=== PATIENT | male | born 1970 | race Caucasian/White ===

== ENCOUNTER 2024-10-04 09:04 | Inpatient (IN) | payer BC, SELFPAY ==
[~2024-10-04] VITALS: Ht 185.4 cm; Wt 98.5 kg
[2024-10-04] MEDS ORDERED: ISOVUE-370 76% 100ML VIAL As Ordered ONE (09:28)
[2024-10-04 09:49] LABS: VENOUS HCO3 25.6 MMOL/L (23.0-27.0); VENOUS O2 SATURATION 62.7 % (60.0-80.0); VENOUS PARTIAL PRESSURE CO2 45.1 mmHg (38.0-50.0); VENOUS PARTIAL PRESSURE O2 31.1 mmHg (30.0-50.0); VENOUS PH 7.372 UNITS (7.330-7.430); VENOUS STANDARD HCO3 23.5 MMOL/L
[2024-10-04] MEDS: ceFAZolin SOD 2 GM in IV 1 EA IV ONE (09:50)
[2024-10-04] MEDS: BOOSTRIX VACCINE (TETANUS/DIPHTH/ACEL. PERTUSSIS) 0.5ML SYR IM.IMMUN ONE (09:52)
[2024-10-04] MEDS ORDERED: LIDOCAINE 2% MDV 20ML VIAL As Ordered ONE (09:58)
[2024-10-04 10:08] LABS: BASO % 0.3 % (0.0-1.0); EOS % 0.3 % (0.0-3.0); HEMATOCRIT 48.7 % (42.0-52.0); HEMOGLOBIN 16.7 g/dl (13.5-17.5); LYMPH # 1.1 10^3/uL (1.5-5.0); LYMPH % 9.7 % (24.0-44.0); MEAN CORPUSCULAR HGB CONC 34.3 g/dl (32.0-36.5); MEAN CORPUSCULAR VOLUME 84.5 fl (80.0-96.0); MONO % 9.2 % (2.0-8.0); NEUTROPHILS % 80.2 % (36.0-66.0); PLATELET COUNT, AUTOMATED 243 10^3/uL (150-450); RED BLOOD COUNT 5.76 10^6/uL (4.30-6.10); WHITE BLOOD COUNT 11.2 10^3/uL (4.0-10.0)
[2024-10-04] MEDS: LIDOCAINE 2% MDV 20ML VIAL SC ONE (10:14)
[2024-10-04 10:17] LABS: ETHYL ALCOHOL (ETHANOL) < 0.003 % (0.000-0.010)
[2024-10-04 10:18] LABS: CPK CREATINE PHOSPHOKINASE 131 U/L (46-171)
[2024-10-04 10:19] LABS: ALBUMIN 3.7 G/DL (3.2-5.2); ALKALINE PHOSPHATASE 72 U/L (40-129); ALT/SGPT 22 U/L (7.0-40); AST/SGOT 12 U/L (<34); BILIRUBIN,DIRECT 0.2 MG/DL (<0.4); BILIRUBIN,TOTAL 0.6 MG/DL (0.3-1.2); BLOOD UREA NITROGEN 17 MG/DL (9-23); CALCIUM LEVEL 9.2 MG/DL (8.5-10.1); CARBON DIOXIDE LEVEL 27 MMOL/L (20-31); CHLORIDE LEVEL 105 MMOL/L (98-107); GLOMERULAR FILTRATION RATE > 60.0 (>56); GLUCOSE, FASTING 176 MG/DL (60-100); POTASSIUM SERUM 4.2 MMOL/L (3.5-5.1); SALICYLATE LEVEL 5.8 MG/DL (<30); SODIUM LEVEL 138 MMOL/L (136-145); TOTAL PROTEIN 6.8 G/DL (5.7-8.2)
[2024-10-04 10:21] LABS: THYROID STIMULATING HORMONE 1.093 uIU/ML (0.55-4.78)
[2024-10-04 10:24] LABS: PROTHROMBIN TIME 13.5 SECONDS (12.5-14.5)
[2024-10-04] MEDS ORDERED: LORazepam 2 MG TAB PO PRN (11:10)
[2024-10-04 11:38] LABS: AMPHETAMINES LEVEL URINE NEGATIVE (NEGATIVE); BARBITURATES URINE NEGATIVE (NEGATIVE); BENZODIAZEPINES URINE NEGATIVE (NEGATIVE); CANNABINOIDS URINE NEGATIVE (NEGATIVE); COCAINE METABOLITE URINE NEGATIVE (NEGATIVE); METHADONE URINE NEGATIVE (NEGATIVE); OPIATES URINE NEGATIVE (NEGATIVE); PHENCYCLIDINE URINE NEGATIVE (NEGATIVE)
[2024-10-04] MEDS ORDERED: ROSU20TA86 PO (15:35)
[2024-10-04] MEDS ORDERED: ASPI-531 PO (15:35)
[2024-10-04] MEDS ORDERED: HOME MED LIST COMPLETE! XX SCH (15:40)
[2024-10-04] MEDS ORDERED: IBUPROFEN 400MG TAB PO PRN (16:00)
[2024-10-04] MEDS ORDERED: MOM 30ML SUSPENSION UDC PO PRN (16:00)
[2024-10-04] MEDS ORDERED: MAALOX 30 ML SUSP *UDC PO PRN (16:00)
[2024-10-04 17:36] VITALS: BP 139/100; TEMP 98.9; O2SAT 98
[2024-10-05] MEDS: ASPIRIN 81MG ENTERIC TABLET PO SCH (11:05)
[2024-10-05] MEDS: ROSUVASTATIN 10 MG TAB (CRESTOR) PO SCH (11:05)
[2024-10-06 01:15] VITALS: BP 144/100; TEMP 100.8; O2SAT 99
[2024-10-06 02:45] LABS: BASO % 0.4 % (0.0-1.0); EOS # 0.1 10^3/uL (0.0-0.5); EOS % 1.2 % (0.0-3.0); HEMATOCRIT 44.6 % (42.0-52.0); HEMOGLOBIN 15.4 g/dl (13.5-17.5); LYMPH # 1.5 10^3/uL (1.5-5.0); LYMPH % 19.7 % (24.0-44.0); MEAN CORPUSCULAR HEMOGLOBIN 29.2 pg (27.0-33.0); MEAN CORPUSCULAR HGB CONC 34.5 g/dl (32.0-36.5); MEAN CORPUSCULAR VOLUME 84.5 fl (80.0-96.0); MONO # 1.2 10^3/uL (0.0-0.8); MONO % 16.1 % (2.0-8.0); NEUTROPHILS # 4.7 10^3/uL (1.5-8.5); NEUTROPHILS % 62.3 % (36.0-66.0); PLATELET COUNT, AUTOMATED 212 10^3/uL (150-450); RED BLOOD COUNT 5.28 10^6/uL (4.30-6.10); WHITE BLOOD COUNT 7.6 10^3/uL (4.0-10.0)
[2024-10-06] MEDS: ACETAMINOPHEN 325 MG TAB PO PRN (02:55)
[2024-10-06 03:04] LABS: INR 1.05; PARTIAL THROMBOPLASTIN TIME 29.3 SECONDS (24.8-34.2)
[2024-10-06 03:15] LABS: ALBUMIN 3.6 G/DL (3.2-5.2); ALKALINE PHOSPHATASE 64 U/L (40-129); ALT/SGPT 20 U/L (7.0-40); AST/SGOT 18 U/L (<34); BILIRUBIN,TOTAL 0.8 MG/DL (0.3-1.2); BLOOD UREA NITROGEN 13 MG/DL (9-23); CALCIUM LEVEL 9.4 MG/DL (8.5-10.1); CARBON DIOXIDE LEVEL 27 MMOL/L (20-31); CHLORIDE LEVEL 106 MMOL/L (98-107); CREATININE FOR GFR 0.88 MG/DL (0.70-1.30); GLOMERULAR FILTRATION RATE > 60.0 (>56); GLUCOSE, FASTING 104 MG/DL (60-100); POTASSIUM SERUM 4.3 MMOL/L (3.5-5.1); SODIUM LEVEL 138 MMOL/L (136-145); TOTAL PROTEIN 6.7 G/DL (5.7-8.2)
[2024-10-06 05:24] VITALS: BP 116/64; TEMP 100; O2SAT 100
[2024-10-06 06:31] VITALS: BP 125/68; TEMP 98.3; O2SAT 97
[2024-10-06] MEDS: DOXYCYCLINE HYCLATE 100MG TABLET PO SCH (09:08)
[2024-10-06 15:30] VITALS: BP 129/73; TEMP 99; O2SAT 98
[2024-10-06] MEDS: traZODone 50 MG TAB PO PRN (21:16)
[2024-10-07 06:28] VITALS: BP 130/75; TEMP 98.6; O2SAT 97
[2024-10-07 15:21] VITALS: BP 145/90; TEMP 99.2; O2SAT 98
[2024-10-07 15:37] VITALS: BP 137/77; TEMP 99.1; O2SAT 100
[2024-10-08 06:34] VITALS: BP 149/92; TEMP 98.6; O2SAT 97
[2024-10-08 14:56] VITALS: BP 138/92; TEMP 98.6; O2SAT 99
[2024-10-09 06:32] VITALS: BP 120/70; TEMP 98.1; O2SAT 95
[2024-10-09 14:00] VITALS: BP 133/80; TEMP 99.2; O2SAT 97
[2024-10-10 06:26] VITALS: BP 117/74; TEMP 98.1; O2SAT 97
[2024-10-10 15:19] VITALS: BP 104/64; TEMP 98.9; O2SAT 97
[2024-10-11 06:21] VITALS: BP 130/82; TEMP 98.4; O2SAT 99
[2024-10-11] MEDS ORDERED: SENNA 8.6 MG TAB (SENOKOT) PO PRN (09:50)
[2024-10-11 15:02] VITALS: BP 127/75; TEMP 98.7; O2SAT 95
[2024-10-11] MEDS: SERTRALINE HCL 25 MG TABLET PO SCH (20:30)
[2024-10-12 06:52] VITALS: BP 136/87; TEMP 97.8; O2SAT 96
[2024-10-12 14:56] VITALS: BP 138/92; TEMP 98.5; O2SAT 96
[2024-10-12] MEDS: diphenhydrAMINE 25MG CAP PO PRN (21:24)
[2024-10-13 06:45] VITALS: BP 141/97; TEMP 98.3; O2SAT 97
[2024-10-13 15:13] VITALS: BP 122/82; TEMP 98.3; O2SAT 97
[2024-10-14 06:29] VITALS: BP 117/69; TEMP 98.3; O2SAT 97
[2024-10-14 15:42] VITALS: BP 118/76; TEMP 98.6; O2SAT 98
[2024-10-14] MEDS: SERTRALINE HCL 50 MG TAB PO SCH (20:23)
[2024-10-15 06:28] VITALS: BP 148/78; TEMP 97.9; O2SAT 95
[2024-10-15 15:27] VITALS: BP 138/97; TEMP 98.4; O2SAT 100
[2024-10-16 06:23] VITALS: BP 144/91; TEMP 99.6; O2SAT 95
[2024-10-16 15:56] VITALS: BP 124/81; TEMP 97.3; O2SAT 95
[2024-10-17 06:30] VITALS: BP 152/88; TEMP 97.9; O2SAT 100
[2024-10-17 14:54] VITALS: BP 128/61; TEMP 98.2; O2SAT 98
[2024-10-18 06:37] VITALS: BP 121/76; TEMP 97.9; O2SAT 95
[2024-10-18] MEDS ORDERED: ASPI-531 PO (09:54)
[2024-10-18] MEDS ORDERED: TRAZ-252 PO (09:54)
[2024-10-18] MEDS ORDERED: ROSU20TA86 PO (09:54)
[2024-10-18] MEDS ORDERED: SENO8.6T5 PO (09:54)
[2024-10-18] MEDS ORDERED: SERT50TA29 PO (09:54)
== END 2024-10-18 15:50 | disposition home or self-care (01) | DRG 754 ==
LOC: M ED 09:04 → M ED INP 15:58 → M PSY 17:02
PROVIDERS: ADMIT Psychiatry & Neurology Child & Adolescent Psychiatry; ATTEND Psychiatry & Neurology Child & Adolescent Psychiatry
PROC: 0HQ4XZZ Repair Neck Skin, External Approach (ICD-10-PCS; principal; 2024-10-04)
DX: F32.A Depression, unspecified (principal); S11.91XA Laceration without foreign body of unspecified part of neck, initial encounter; F84.0 Autistic disorder; X78.1XXA Intentional self-harm by knife, initial encounter; Y92.002 Bathroom of unspecified non-institutional (private) residence as the place of occurrence of the external cause; Z79.82 Long term (current) use of aspirin; Z79.899 Other long term (current) drug therapy; Z90.49 Acquired absence of other specified parts of digestive tract; Z87.891 Personal history of nicotine dependence; Z63.5 Disruption of family by separation and divorce; T14.91XA Suicide attempt, initial encounter